=== PATIENT | male | born 1985 | race Caucasian/White ===

== ENCOUNTER 2022-08-13 18:43 | Emergency (ER) | payer MEDICAID ==
[~2022-08-13] VITALS: Ht 165.1 cm; Wt 90.7 kg
[2022-08-13 18:53] VITALS: BP 152/90
--- NOTE | 2022-08-13 20:00 | NUR ---
CALLED FOR EXAM BY DR BALDERAS, NO ANSWER
--- NOTE | 2022-08-13 20:30 | NUR ---
CALLED BY DR BALDERAS FOR EXAM, NO ANSWER. PT LWBS
== END 2022-08-13 20:30 | disposition left against medical advice (07) ==
LOC: MED 18:43
DX: M25.511 Pain in right shoulder (principal); Z53.21 Procedure and treatment not carried out due to patient leaving prior to being seen by health care provider
CPT/HCPCS: 99281